=== PATIENT | male | born 1985 | race Caucasian/White ===

== ENCOUNTER 2025-04-08 10:50 | Emergency (ER) | payer MEDICAID, OTHER ==
[~2025-04-08] VITALS: Ht 182.9 cm; Wt 82.0 kg
[~2025-04-08 10:50] MED LIST: OXYC-490 PO
[2025-04-08 10:57] VITALS: TEMP 98.2
[2025-04-08] MEDS: LIDOCAINE 5% TRANSDERMAL PATCH TD ONE (11:27)
[2025-04-08 11:46] LABS: CALCIUM, TOTAL 9.0 mg/dL (8.8-10.5); CREATININE 0.82 mg/dL (0.60-1.30); GLOMERULAR FILTR. RATE CALC > 60 mL/min (>60); GLUCOSE,RANDOM 87 mg/dL (70-110); SODIUM SERUM 139 mmol/L (136-145); UREA NITROGEN, BLOOD 10 mg/dL (7-18)
[2025-04-08 11:55] LABS: PLATELET COUNT (AUTO) 208 K/uL (150-450); RED BLOOD CELL COUNT(AUTO) 4.90 MIL/uL (4.50-5.90); RED CELL DISTRIBUTION WIDTH 14.0 % (11.5-14.5); WHITE BLOOD COUNT (AUTO) 8.1 K/uL (4.5-11.0)
[2025-04-08 13:35] VITALS: BP 106/78; PULSE 94; RESP 18; O2SAT 100
== END 2025-04-08 13:45 | disposition home or self-care (01) ==
LOC: EMS 10:50
DX: G89.29 Other chronic pain (principal); M54.2 Cervicalgia; M54.6 Pain in thoracic spine; F17.210 Nicotine dependence, cigarettes, uncomplicated; Z88.5 Allergy status to narcotic agent; Z88.6 Allergy status to analgesic agent; Z98.1 Arthrodesis status
CPT/HCPCS: 99284; 80048; 85025; 36415; 96372; G0480; J1171